=== PATIENT | male | born 1975 | race Caucasian/White ===

== ENCOUNTER 2024-01-28 16:38 | Emergency (ER) | payer MEDICAID, SELFPAY ==
--- NOTE | 2024-01-28 16:41 | CTR_ITS ---
PROCEDURE INFORMATION: Exam: CT Cervical Spine Without Contrast Exam date and time: 01/28/2024 4:54 PM Age: 48 years old Clinical indication: Injury or trauma; Blunt trauma; Additional info: Fall/trauma TECHNIQUE: Imaging protocol: Computed tomography of the cervical spine without contrast. Radiation optimization: All CT scans at this facility use at least one of these dose optimization techniques: automated exposure control; mA and/or kV adjustment per patient size (includes targeted exams where dose is matched to clinical indication); or iterative reconstruction. COMPARISON: CT head wo con* [id number] 01/28/2024 4:54 PM RADIATION DOSE METRICS: Total DLP (mGy-cm): 1618.09 FINDINGS: Bones/joints: No acute fracture. Normal alignment. No significant disc bulge or herniation. No severe spinal canal stenosis. No significant neural foraminal narrowing. Lungs: Lung apices are normal. Soft tissues: Unremarkable. CT/CT cervical spin wo con* [id number] IMPRESSION: No acute findings.
--- NOTE | 2024-01-28 16:41 | CTR_ITS ---
PROCEDURE INFORMATION: Exam: CT Head Without Contrast Exam date and time: 01/28/2024 4:54 PM Age: 48 years old Clinical indication: Injury or trauma; Fall; Blunt trauma (contusions or hematomas); Consciousness not specified; Additional info: Fall/large laceration TECHNIQUE: Imaging protocol: Computed tomography of the head without contrast. Radiation optimization: All CT scans at this facility use at least one of these dose optimization techniques: automated exposure control; mA and/or kV adjustment per patient size (includes targeted exams where dose is matched to clinical indication); or iterative reconstruction. COMPARISON: CT cervical spin wo con* [id number] 01/28/2024 4:54 PM RADIATION DOSE METRICS: Total DLP (mGy-cm): 1618.09 FINDINGS: Brain: No hemorrhage. No edema. Mild diffuse cerebral atrophy and sequela of chronic small vessel ischemic disease. Old lacunar infarct noted in the left cerebellar hemisphere. No mass effect. Cerebral ventricles: No ventriculomegaly. Paranasal sinuses: Visualized sinuses are unremarkable. No fluid levels. Mastoid air cells: Visualized mastoid air cells are well aerated. Bones/joints: Unremarkable. No acute fracture. Soft tissues: Unremarkable. CT/CT head wo con* [id number] IMPRESSION: No acute intracranial abnormality.
[2024-01-28 16:44] VITALS: BP 162/104; PULSE 95; RESP 16; TEMP 36.5; O2SAT 95
--- NOTE | 2024-01-28 19:01 | XRR_ITS ---
PROCEDURE INFORMATION: Exam: XR Left Ribs Exam date and time: 01/28/2024 7:15 PM Age: 48 years old Clinical indication: Injury or trauma; Fall; Rib area, left side; Blunt trauma; Additional info: Fall/pain TECHNIQUE: Imaging protocol: Radiologic exam of the left ribs. Views: 2 views. COMPARISON: CT cervical spin wo con* [id number] 01/28/2024 4:54 PM FINDINGS: Bones/joints: Posterolateral left 5th through 8th rib fractures. Soft tissues: Normal. XR/XR ribs LT 2V* [id number] IMPRESSION: Posterolateral left 5th through 8th rib fractures.
--- NOTE | 2024-01-28 19:01 | XRR_ITS ---
PROCEDURE INFORMATION: Exam: XR Right Hand Exam date and time: 01/28/2024 7:20 PM Age: 48 years old Clinical indication: Injury or trauma; Fall; Blunt trauma (contusions or hematomas); Hand; Right; Additional info: Fall/pain TECHNIQUE: Imaging protocol: Radiologic exam of the right hand. Views: 3 or more views. COMPARISON: No relevant prior studies available. FINDINGS: Bones/joints: Normal. Soft tissues: Normal. XR/XR hand RT min 3V* [id number] IMPRESSION: No acute findings.
--- NOTE | 2024-01-28 19:01 | XRR_ITS ---
PROCEDURE INFORMATION: Exam: XR Right Wrist Exam date and time: 01/28/2024 7:21 PM Age: 48 years old Clinical indication: Injury or trauma; Fall; Blunt trauma (contusions or hematomas); Wrist; Right; Additional info: Fall/pain TECHNIQUE: Imaging protocol: Radiologic exam of the right wrist. Views: 3 or more views. COMPARISON: CR (UP EX, ) 01/28/2024 7:20 PM FINDINGS: Bones/joints: Normal. Soft tissues: Normal. XR/XR wrist RT min 3V* [id number] IMPRESSION: No acute findings.
--- NOTE | 2024-01-28 19:11 | ED_ITS ---
Documented by User: PERI Powell 01/28/24 20:26 HPI - Wound/Laceration General: Chief Complaint: Wound/Laceration Stated Complaint: head lac Time Seen by Provider: 01/28/24 18:34 Source: patient Mode of arrival: ambulatory Limitations: no limitations History of Present Illness: Patient is a 48-year-old male presenting to the emergency department due to head laceration onset prior to arrival. He notes he was walking outside down some stairs, when he lost his footing and tripped striking the left aspect of his forehead on the stairs. There is a large laceration, however he is also noting some right wrist and hand pain as well as some left side pain. He denies any symptoms prior to the fall and states he just simply lost his footing. He does note that his tetanus is not up-to-date. No other symptoms to report at this time, other than some tenderness over the laceration and the previously reported joint pain and left side pain. Onset (ago): minute(s) Location: scalp Place: outdoors Patient tetanus UTD: No Context: accidental Associated symptoms: Reports no associated symptoms; Denies chills, fever(s), nausea or vomiting Review of Systems General: Reports: 10 or more systems reviewed and unremarkable except in HPI and below Const: Denies: fever(s), chills or fatigue Eyes: Denies: change in vision ENMT: Denies: throat pain, ear or mastoid pain or nasal discharge Card: Denies: chest pain, palpitations, swelling of feet/ankles or lightheadedness Resp: Denies: dyspnea, productive cough or wheezing GI: Denies: abdominal pain, nausea, vomiting, diarrhea or constipation : Denies: flank pain, difficulty urinating, dysuria or urinary frequency Musc: Reports: extremity pain (Right hand), joint pain (Right wrist) and other (Left rib pain); Denies: neck pain or back pain Skin/Breast: Reports: new lesions (Head lac); Denies: rash Neuro: Denies: headache(s), numbness in extremities or weakness in extremities Physical Exam Const: COMMON NORMALS: no acute distress, patient oriented x3 and no limitations GENERAL APPEARANCE: cooperative, comfortable and well developed ORIENTATION/CONSCIOUSNESS: Yes awake, Yes oriented to person, Yes oriented to place and Yes oriented to time HENMT: COMMON NORMALS: external ears normal and Normal external nose present HEAD & SCALP: laceration left frontal Details of head laceration: linear, involves subcutaneous tissue, involves muscle tissue and sensation intact; not actively bleeding, not pulsatile bleeding and foreign body not present Head laceration size: 5 cm and scalp tenderness; no Hernandez's sign, no palpable skull fracture and no raccoon eyes FACE & SINUS: normal facial exam and face symmetric NOSE: Normal external nose present and Normal nares present EXTERNAL EAR: Yes external ears normal MOUTH: Normal oral and palatal mucosa present Eye: COMMON NORMALS: Equal, round and reactive pupils present, EOMs intact bilaterally and conjunctivae normal CONJUNCTIVA: Yes conjunctivae normal PUPIL: Yes Equal, round and reactive pupils present Neck/C-Spine: COMMON NORMALS: full ROM, supple and no JVD Resp: COMMON NORMALS: normal respiratory effort, No retractions, No use of accessory muscles and clear to auscultation bilaterally AUSCULTATION: clear to auscultation bilaterally Cardio: COMMON NORMALS: no JVD, regular rate, regular rhythm, No clicks present (Cardio), No murmurs present (Cardio) and No rub (Cardio) RATE: regular rate RHYTHM: regular rhythm GI: COMMON NORMALS: Normal to inspection, nondistended, normoactive bowel sounds present, Soft to palpation and non-tender AUSCULTATION: Yes normoactive bowel sounds PALPATION: Yes Soft to palpation RECTAL EXAM: Yes deferred : COMMON NORMALS: Yes no CVA tenderness BLADDER/KIDNEY EXAM: Yes no CVA tenderness Back/Pelvis: COMMON NORMALS: no CVA tenderness, thoracic and lumbar spine normal to inspection, no thoracic nor lumbar tenderness and thoraco-lumbar ROM normal Extremity: COMMON NORMALS: normal to inspection, full ROM and capillary refill normal RIGHT UPPER EXTREMITY: Yes wrist Right wrist: Yes inspection (No edema, ecchymosis, signs of trauma), Yes palpation (Diffuse tender to palpation), Yes ROM (With pain) and Yes neurovascular exam (Intact) Neuro: COMMON NORMALS: patient oriented x3, CN's II-XII intact bilaterally, moves all extremities, no focal motor deficits and no sensory deficits noted SENSORIUM/ORIENTATION: Yes oriented to person, Yes oriented to place and Yes oriented to time Psych: COMMON NORMALS: mental status grossly normal and Normal thought process present THOUGHT PROCESS: Normal thought process present Procedures Laceration Laceration 1: Site: scalp Size (cm): 5 Description: linear Depth: simple, single layer and involves muscle layer Local Anesthetic: lidocaine 2% Amount of anesthesia used (mL): 8 Pre-repair: wound explored and irrigated extensively Skin layer closed with: nylon Size (cm): 4-0 Number of sutures: 10 Technique: simple, interrupted Course Vital Signs: Vital signs: Vital Signs Temperature 97.7 F 01/28/24 16:44 Pulse Rate 86 01/28/24 20:51 Respiratory Rate 18 01/28/24 20:51 Blood Pressure 153/112 01/28/24 20:35 Pulse Oximetry 98 01/28/24 20:51 Oxygen Delivery Me thod Room Air 01/28/24 20:35 MDM - Wound/Laceration Medical Decision Making This patient was seen and evaluated for laceration status post fall just prior to arrival. He was also reporting some right wrist pain as well as left side pain. CT imaging of the head and neck were negative. Imaging of the right wrist also negative. However the left rib x-ray series did show fractures of ribs 5 through 8. I did repair the laceration, no complications. See procedure note. I did inform the patient to practice pulmonary hygiene and I will send him home with hydrocodone for pain control. I did inform him of strict return precautions and that if his pain gets unbearable to return to the emergency department. Proper wound care also discussed. Patient agrees with this plan and other questions and concerns addressed at this time. Lab Data Radiology Impressions Cervical Spine CT 01/28/24 16:41 IMPRESSION: No acute findings. Head CT 01/28/24 16:41 IMPRESSION: No acute intracranial abnormality. Hand X-Ray 01/28/24 19:01 IMPRESSION: No acute findings. Ribs X-Ray 01/28/24 19:01 IMPRESSION: Posterolateral left 5th through 8th rib fractures. Wrist X-Ray 01/28/24 19:01 IMPRESSION: No acute findings. All radiology interpretation(s) finalized by discharge Discharge Plan Discharge Patient Disposition: Home Clinical Impression: Laceration Contusion of right wrist Qualifiers: Encounter type: initial encounter Qualified Code(s): S60.211A - Contusion of right wrist, initial encounter Multiple fractures of ribs Qualifiers: Encounter type: initial encounter Fracture type: closed Laterality: left Qualified Code(s): S22.42XA - Multiple fractures of ribs, left side, initial encounter for closed fracture Condition: Stable Prescriptions: New hydrocodone-acetaminophen 5-325 mg tablet 1 tab PO Q6H PRN (Reason: pain) Qty: 20 0RF Discharge Orders: Discharge ED (Routine); Ordered 01/28/24 Ordered By: Otis Paez Referrals: Rigo Lock MD [Primary Care Provider] - Discharge Diet: Usual diet Discharge Activity: Limit activity as instructed Patient Instructions: Laceration (ED), Rib Fracture (ED) Activity Restrictions/Additional Instructions: Sutures out in 5-7 days. Do not soak wound for the first 24 to 48 hours. You may then clean the wound with soap and water, however keep dry. Pain medications as needed. If you develop any new or concerning symptoms, please return to the emergency department for reevaluation. Pulmonary hygiene as discussed. Ice as needed. Follow-up with primary care as needed. Coding Level of Care Code ED Quar[employer] Supervisor Open Pit for Chg Fwd Documented by User: Garret Contreras DO 01/29/24 07:21 HPI - Wound/Laceration General: Chief Complaint: Wound/Laceration Stated Complaint: head lac Time Seen by Provider: 01/28/24 18:34 Course Vital Signs: Vital signs: Vital Signs Temperature 97.7 F 01/28/24 16:44 Pulse Rate 86 01/28/24 20:51 Respiratory Rate 18 01/28/24 20:51 Blood Pressure 153/112 01/28/24 20:35 Pulse Oximetry 98 01/28/24 20:51 Oxygen Delivery Me thod Room Air 01/28/24 20:35 MDM - Wound/Laceration Medical Decision Making This patient was seen and evaluated for laceration status post fall just prior to arrival. He was also reporting some right wrist pain as well as left side pain. CT imaging of the head and neck were negative. Imaging of the right wrist also negative. However the left rib x-ray series did show fractures of ribs 5 through 8. I did repair the laceration, no complications. See procedure note. I did inform the patient to practice pulmonary hygiene and I will send him home with hydrocodone for pain control. I did inform him of strict return precautions and that if his pain gets unbearable to return to the emergency department. Proper wound care also discussed. Patient agrees with this plan and other questions and concerns addressed at this time. Chart reviewed Lab Data Radiology Impressions Cervical Spine CT 01/28/24 16:41 IMPRESSION: No acute findings. Head CT 01/28/24 16:41 IMPRESSION: No acute intracranial abnormality. Hand X-Ray 01/28/24 19:01 IMPRESSION: No acute findings. Ribs X-Ray 01/28/24 19:01 IMPRESSION: Posterolateral left 5th through 8th rib fractures. Wrist X-Ray 01/28/24 19:01 IMPRESSION: No acute findings. Discharge Plan Discharge Patient Disposition: Home Clinical Impression: Laceration Contusion of right wrist Qualifiers: Encounter type: initial encounter Qualified Code(s): S60.211A - Contusion of right wrist, initial encounter Multiple fractures of ribs Qualifiers: Encounter type: initial encounter Fracture type: closed Laterality: left Qualified Code(s): S22.42XA - Multiple fractures of ribs, left side, initial encounter for closed fracture Condition: Stable Prescriptions: New hydrocodone-acetaminophen 5-325 mg tablet 1 tab PO Q6H PRN (Reason: pain) Qty: 20 0RF Discharge Orders: Discharge ED (Routine); Ordered 01/28/24 Ordered By: Otis Paez Referrals: Rigo Lock MD [Primary Care Provider] - Discharge Diet: Usual diet Discharge Activity: Limit activity as instructed Patient Instructions: Laceration (ED), Rib Fracture (ED) Activity Restrictions/Additional Instructions: Sutures out in 5-7 days. Do not soak wound for the first 24 to 48 hours. You may then clean the wound with soap and water, however keep dry. Pain medications as needed. If you develop any new or concerning symptoms, please return to the emergency department for reevaluation. Pulmonary hygiene as discussed. Ice as needed. Follow-up with primary care as needed. Coding Level of Care Code ED Quar[employer] Supervisor [employer] Pit for Kiera Snider
[2024-01-28] MEDS: lidocaine 2% INJ 20 mL INJECTION (20:14)
[2024-01-28] MEDS: HYDROcodone-acetaminophen 7.5-325 mg Tablet 1 TAB PO (20:29)
[2024-01-28] MEDS: tetanus-dipt-pertussis 0.5 mL SDV IM (20:30)
[2024-01-28 20:35] VITALS: BP 153/112; PULSE 86; O2SAT 95
[2024-01-28 20:51] VITALS: PULSE 86; RESP 18; O2SAT 98
== END 2024-01-28 20:47 | disposition home or self-care (01) ==
PROVIDERS: Emergency Provider Physician Assistant; PCP Family Medicine
DX: S60.211A Contusion of right wrist, initial encounter (principal); S22.42XA Multiple fractures of ribs, left side, initial encounter for closed fracture; S01.01XA Laceration without foreign body of scalp, initial encounter; W10.8XXA Fall (on) (from) other stairs and steps, initial encounter; Z23 Encounter for immunization
CPT/HCPCS: 12002; 70450; 71100; 72125; 73110; 73130; 90471; 90715; 99284

== ENCOUNTER 2024-04-02 15:12 | Outpatient (RCR) | payer MEDICAID, SELFPAY | END 2024-04-05 23:59 | disposition home or self-care (01) | LOC: SPT 15:12 | PROVIDERS: Visit Provider Family Medicine | DX: M54.50 Low back pain, unspecified (principal); G89.29 Other chronic pain | CPT/HCPCS: 97161 ==

== ENCOUNTER 2024-04-06 06:00 | Outpatient (RCR) | payer MEDICAID, SELFPAY | END 2024-05-06 23:59 | disposition home or self-care (01) | LOC: SPT 06:00 | PROVIDERS: Visit Provider Family Medicine | DX: M54.50 Low back pain, unspecified (principal); G89.29 Other chronic pain | CPT/HCPCS: 97032; 97110 ==

== ENCOUNTER 2024-05-07 06:00 | Outpatient (RCR) | payer MEDICAID, SELFPAY | END 2024-05-22 23:59 | disposition home or self-care (01) | LOC: SPT 06:00 | PROVIDERS: Visit Provider Family Medicine | DX: M54.50 Low back pain, unspecified (principal); G89.29 Other chronic pain | CPT/HCPCS: 97110 ==

== ENCOUNTER → 2024-06-25 15:52 | Outpatient (BNVA) | payer MEDICAID, SELFPAY | PROVIDERS: PCP Family Medicine; Visit Provider Orthopaedic Surgery | DX: M54.50 Low back pain, unspecified (principal) | CPT/HCPCS: 72110 ==

== ENCOUNTER 2024-07-01 14:30 | Outpatient (CLI) | payer MEDICAID, SELFPAY ==
--- NOTE | 2024-07-01 14:35 | MR_ITS ---
WS: [id number] MRI LUMBAR SPINE NONCONTRAST HISTORY: back pain COMPARISON: None available. TECHNIQUE: Sagittal and axial multisequence imaging is submitted. Chronic anterior wedging T11 estimated at 30%. No marrow edema at T11. L4 anterolisthesis by 10 mm with severe disc space narrowing at L4-5. Posterior L4 vertebral body is a near contact of the superior endplate of L5. Heterogeneous signal along the L4 and L5 endplates. Bi lateral pars defects at L4. The remaining disc spaces are well preserved. Conus terminates normally at L1-2 disc level. L1-L2: Normal. L2-L3: Mild annular disc bulging with ligamentum flavum and facet arthritis. No significant stenosis. L3-L4: Mild annular disc bulging with facet joint arthritis and ligamentum flavum hypertrophy. Very m inimal bilateral foraminal narrowing. L4-L5: Unroofing of the L4-5 disc by anterolisthesis of L4. There is disc encroachment upon the ventr al thecal sac. No central canal stenosis but there is at least moderate bilateral subarticular recess and bilateral foraminal stenosis. There is contact and encroachment upon the L4 and L5 nerve roots b ilaterally. L5-S1: Small rudimentary disc. No stenosis. Normal paravertebral soft tissues. MR/MR lumbar spine wo con* [id number] IMPRESSION: 1. Grade 1 spondylolisthesis of L4. 2. 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 3. Moderate bilateral subarticular recess and foraminal stenosis at L4-5 due t o the anterolisthesis of L4. No high-grade central stenosis. There is contact o n the L4 and L5 nerve roots. 4. Mild bilateral foraminal narrowing at L3-4. 5. Chronic T11 anterior wedging, 30% compression fracture.
== END 2024-07-01 14:32 | disposition home or self-care (01) ==
PROVIDERS: PCP Family Medicine; Visit Provider Family Medicine
DX: M43.16 Spondylolisthesis, lumbar region (principal); M99.61 Osseous and subluxation stenosis of intervertebral foramina of cervical region; S22.080A Wedge compression fracture of T11-T12 vertebra, initial encounter for closed fracture; X58.XXXA Exposure to other specified factors, initial encounter
CPT/HCPCS: 72148

== ENCOUNTER → 2024-11-05 11:01 | Outpatient (BNVA) | payer MEDICAID, SELFPAY | PROVIDERS: PCP Family Medicine; Visit Provider Orthopaedic Surgery | DX: M43.16 Spondylolisthesis, lumbar region (principal) | CPT/HCPCS: 36415; 80053; 81001; 85025 ==